=== PATIENT | female | born 1980 | race Caucasian/White ===

== ENCOUNTER 2017-10-18 18:05 | Emergency (ER) | payer BC ==
[2017-10-18 18:30] VITALS: BP 158/84
--- NOTE | 2017-10-18 19:49 | EDM.PDOC ---
ED HPI GENERAL MEDICAL PROBLEM - General Chief Complaint: Lower Extremity Injury/Pain Stated Complaint: RIGHT FOOT PAIN, FALL Time Seen by Provider: 10/18/17 19:20 Source of Information: Reports: Patient History Limitations: Reports: No Limitations - History of Present Illness INITIAL COMMENTS - FREE TEXT/NARRATIVE: 37-year-old female hurt her right foot about 3:00 this afternoon when she fell and tumbled onto the top of her foot. She has significant pain especially with weightbearing. Onset: Today Quality: Reports: Ache, Sharp, Stabbing Severity: Moderate Associated Symptoms: Reports: No Other Symptoms Right Ankle Pain Score (Numeric/FACES): 8 - Related Data Allergies Allergy/AdvReac Type Severity Reaction Status Date / Time No Known Allergies Allergy Verified 10/18/17 18:30 Home Meds: Home Meds Ibuprofen [Advil] 200 mg PO Q6HR PRN 08/12/16 [History] Past Medical History HEENT History: Reports: Impaired Vision Cardiovascular History: Reports: Other (See Below) Other Cardiovascular History: stress teest due to chest pain re: GERD Gastrointestinal History: Reports: GERD Genitourinary History: Reports: None [employer] History: Reports: Dysfunctional Uterine Bleeding, Psychiatric History: Reports: Depression Endocrine/Metabolic History: Reports: Obesity/BMI 30+ - Infectious Disease History Infectious Disease History: Reports: Chicken Pox - Past Surgical History Head Surgeries/Procedures: Reports: None HEENT Surgical History: Reports: Eye Surgery, Other (See Below) GI Surgical History: Reports: Cholecystectomy, EGD Female Surgical History: Reports: Hysterectomy Endocrine Surgical History: Reports: None Dermatological Surgical History: Reports: None Social & Family History - Family History Family Medical History: Noncontributory - Tobacco Use Smoking Status *Q: Current Every Day Smoker Years of Tobacco use: 10 Packs/Tins Daily: 0.5 Used Tobacco, but Quit: No Month Tobacco Last Used: july Second Hand Smoke Exposure: No - Caffeine Use Caffeine Use: Reports: Coffee, Soda - Alcohol Use Days Per Week of Alcohol Use: 1 Number of Drinks Per Day: 2 Total Drinks Per Week: 2 - Recreational Drug Use Recreational Drug Use: No Review of Systems - Review of Systems Review Of Systems: ROS reveals no pertinent complaints other than HPI. ED EXAM, GENERAL - Physical Exam Exam: See Below Exam Limited By: No Limitations General Appearance: Alert, No Apparent Distress (Patient is uncomfortable but not distressed) Respiratory/Chest: No Respiratory Distress Extremities: Other (Exam is otherwise limited to the lower extremities. There is some slight swelling to the mid foot of the right foot compared to the left. No significant bruising or ecchymosis. She is exquisitely tender to palpation over the midfoot, especially laterally.) Course - Vital Signs Last Recorded V/S: Last Vital Signs Temp 99.0 F 10/18/17 18:34 Pulse 77 10/18/17 18:34 Resp 16 10/18/17 18:34 BP 158/84 H 10/18/17 18:34 Pulse Ox 99 10/18/17 18:34 - Orders/Labs/Meds Orders: Active Orders 24 hr Category Date Time Status Foot Comp Min 3V Rt [CR] Stat Exams 10/18/17 18:58 Taken DME for Discharge [COMM] Stat Oth 10/18/17 19:44 Ordered Meds: Medications Discontinued Medications Generic Name Dose Route Start Last Admin Trade Name Freq PRN Reason Stop Dose Admin Hydrocodone Bitart/Acetaminophen 1 tab 10/18/17 20:01 10/18/17 20:08 [place] 325-10 Mg PO 10/18/17 20:02 1 tab ONETIME ONE Administration - Re-Assessments/Exams Free Text/Narrative Re-Assessment/Exam: 10/18/17 20:02 An x-ray of the foot was obtained that appears to have a fracture of the cuboid. A 2 inch [place] wrap was applied around the foot and she was placed in a walking boot. Also fitted with crutches. Given pain control and I feel she should be rechecked by podiatry early next week. Hopefully Dr. Jackson can fit her in Friday or Friday. Departure - Departure Time of Disposition: 20:30 Disposition: Home, Self-Care 01 Condition: Good Clinical Impression: Fracture of cuboid bone, closed Qualifiers: Encounter type: initial encounter Fracture alignment: displaced Laterality: right Qualified Code(s): S92.211A - Displaced fracture of cuboid bone of right foot, initial encounter for closed fracture - Discharge Information Instructions: [place] Fracture of the Foot Referrals: Woodrow Vargas MD [Primary Care Provider] - Forms: ED Department Discharge Care Plan Goals: Wear boot if possible, elevate foot and use crutches for ambulation. See Dr. Jackson on Friday for recheck. Use pain medications as prescribed. - My Orders Last 24 Hours: My Active Orders 10/18/17 18:58 Foot Comp Min 3V Rt [CR] Stat 10/18/17 19:44 DME for Discharge [COMM] Stat - Assessment/Plan Last 24 Hours: My Active Orders 10/18/17 18:58 Foot Comp Min 3V Rt [CR] Stat 10/18/17 19:44 DME for Discharge [COMM] Stat
[2017-10-18] MEDS ORDERED: Acetaminophen/HYDROcodone 325-10 MG Tab PO ONE (20:01)
--- NOTE | 2017-10-20 09:30 | CR ---
Foot Comp Min 3V Rt INDICATION: fall,injury COMPARISON: None FINDINGS: 3 views. There is a fracture fragment along the lateral aspect of the cuboid. No other fractures seen.
== END 2017-10-18 20:32 | disposition home or self-care (01) ==
LOC: JP.ED 18:05
DX: S92.211A Displaced fracture of cuboid bone of right foot, initial encounter for closed fracture (principal); F17.210 Nicotine dependence, cigarettes, uncomplicated; W19.XXXA Unspecified fall, initial encounter
CPT/HCPCS: 73630; 99284; A9270